=== PATIENT | male | born 1935 | race Caucasian/White ===

== ENCOUNTER 2019-05-07 06:13 | Inpatient (IN) | payer OTHER ==
[~2019-05-07] VITALS: Ht 182.9 cm; Wt 88.5 kg
[2019-05-07 09:50] VITALS: BP 137/66
--- NOTE | 2019-05-07 10:57 | NUR ---
84 YEAR OLD MEI ARRIVES TO UNIT VIA CART FROM [facility] ER. PER ER REPORT HAS BEEN LIVING AT [facility]-LAST PM REPORTED BACK PAIN TO ALF STAFF AND WAS INFORMED HE HAD NO ADDITIONAL PAIN MEDICATIONS TO TAKE-HE ALLEGEDLY STATES "I'M DONE WITH THIS LIFE" AND WRAPPED CALL LIGHT CHORD AROUND NECK. DENIES SI CURRENTLY BUT DOES REPORT HOPELSSNESS,ANHEDONIA AND FEELINGS OF ABADOMENT BY ADULT DAUGHTERS. STATES "MY BODY DOESN'T WORK ANYMORE AND MY MIND STILL DOES A LITTLE BIT" ORIENTED TO NAME AND PLACE-INCORRECTLY ID'S MONTH MAY. GUARDED-AND SARCASTIC DURING INTERVIEW "I'M IN THE REAL NUT HOUSE NOW" RESPONDS "I DON'T KNOW TO MANY QUESTIONS RE MEDICAL HISTORY.VS OBTAINED BP 137/66 P-66 R-16 AND 02 SAT 92-TEMP 98.1, REQUIRES SBA X 2-3 TO TRANSFER D/Y HEMEPERISIS. WEARING BRIEF-NOTED DURING SKIN ASSESSMENT TO HAVE OPEN AREA TO MIDLINE COCYX-DR ROMO AND -ON UNIT AND ASSESSED WOUND-
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
--- NOTE | 2019-05-07 16:29 | NUR ---
Curt Gomez with [facility] contacted and said that it is the plan for pt to return. He asked that updates be faxed Friday to [phone]. team will continue to follow pt during his stay.
[2019-05-07 19:30] VITALS: BP 114/78
--- NOTE | 2019-05-08 01:47 | NUR ---
ASSUMED CARE OF PATIENT AT 1915, ON 05/07/19. PATIENT IS ALERT AND ORIENTED 2-3X. HE IS CALM AND COOPERATIVE WITH THIS NURSE AND AGREEABLE TO ASSESSMENT. HE APPEARS WITH A FLAT AFFECT, BUT DENIES FEELINGS OF DEPRESSION. STATED MOOD IS NOT IN CONGRUENT WITH AFFECT. HE DOES REPORT 'A LOT' OF LOWER BACK PAIN. DR ROMO NOTIFIED AND RECEIVED ORDERS FOR CYCLOBENZAPRINE 10MG Q8H PRN. ALSO ADMINISTERED TYLENOL ORDERED. PATIENT DOES YELL OUT WHEN HE IS IN PAIN. WILL CONTINUE TO MONITOR THIS MAY HAVE AN EFFECT ON PATIENTS MOOD. HE DENIED OTHER MEDICAL CONCERNS. NURSING WILL MAINTAIN ALL PRECAUTIONS TO ENSURE SAFETY AT ALL TIMES.
[2019-05-08 06:22] LABS: ALBUMIN 3.4 g/dL (3.4-5.0); CALCIUM 9.1 mg/dL (8.5-10.1); CREATININE 1.7 mg/dL (0.7-1.3); PHOSPHORUS 3.4 mg/dL (2.5-4.9); POTASSIUM 3.4 mmol/L (3.5-5.1)
[2019-05-08 07:00] VITALS: BP 157/87
--- NOTE | 2019-05-08 14:02 | NUR ---
Lying in bed. Alert and orientated X2. Denies SI/HI. Sarcastic replies to some questions. Breath sounds clear t/o, bilaterally equal. Regular HR auscultated. Color pink with brisk capillary refill and palpable peripheral pulses. +1-2 non pitting edema to lower extremities. Active bowel sounds over soft, rounded abdomen. Soft, small brown stool per brief with small amount of urine. Able to palpate bladder. Able to bear very little weight. Large 7-8 cm area extremely reddened area to center buttocks area with multiple small broken areas with the largest open area approximately 2 cm x1 cm. Circular, scaly rash to lower back. Up to with assistance X 3 after barrier cream applied and skin cleansed. Ate no breakfast but did drink fluids. Compliant with meds. Cushion ordered for WC. 0900 Placed back in bed and on L side. Bottom cleaned and ointment applied. Left brief off. Turned so that he is completely off buttocks. 1200 Turning side to side every 1-2 hours so that he is off back/buttocks. . States he has back pain of 7. Tylenol given and Amilcar Ho applied per request. Pain decreased to 5. Did not eat lunch but did drink 100% of ensure and additional water/tea. 1415 Placed back to bed and repositioned on L side. Now states pain is a three. Scant amount of urine today. Will obtain bladder scan.
[2019-05-08 18:27] LABS: URINE BILIRUBIN NEGATIVE (Negative); URINE BLOOD 3+ (Negative); URINE CLARITY CLOUDY; URINE COLOR BROWN; URINE GLUCOSE-RANDOM* NEGATIVE (Negative); URINE KETONES NEGATIVE (Negative); URINE LEUKOCYTES-REFLEX 3+ (Negative); URINE NITRITE-REFLEX POSITIVE (Negative); URINE PROTEIN (DIPSTICK) TRACE (Negative); URINE SPECIFIC GRAVITY 1.015 (1.005-1.035); URINE UROBILINOGEN 0.2 E.U./dl (0.2-1.0)
[2019-05-08 18:34] LABS: SQUAMOUS 0-3 Few /LPF (0-3)
[2019-05-08 18:35] LABS: BACTERIA-REFLEX >30 Many /HPF (None Seen); CASTS None Seen /LPF (None Seen); CRYSTALS None Seen /LPF (None Seen); URINE RBC >20 Many /HPF (0-2); URINE WBC-REFLEX >25 Many /HPF (0-5)
[2019-05-08 19:38] VITALS: BP 172/69
--- NOTE | 2019-05-08 21:21 | NUR ---
REVIEWED LABS WITH DR. ROMO RECEIVED ORDERS FOR ROCEPHIN 1GM X3 DOSES STARTING TODAY ENDING FRIDAY, WITH LIDOCAINE FOR COMFORT. TELEPHONE ORDER RB.
--- NOTE | 2019-05-08 23:22 | NUR ---
ASSUMED CARE OF PATIENT AT 1915. PATIENT IS ALERT AND ORIENTED X2 UPON ONE TO ONE WITH PATIENT. DURING ASSESSMENT PATIENT IN BED WITH EYES CLOSED BUT OPENED SPONTANEOUSLY TO MY VOICE. DISCUSSED WITH PATIENT GIVING PAIN MEDICATION FOR BACK PAIN PRIOR TO IT BECOMING WORSE, HE AGREED WITH PLAN. HE APPEARS WITH A FLAT SAD AFFECT, ISOLATING TO HIS ROOM THIS EVENING. FOY CATHETER IN PLACE AND PATENT, URINE APPEARS YELLOW. DISCUSSED LAB RESULTS WITH DR. ROMO AND IM ROCEPHIN GIVEN ORDERED ET DISCUSSED WITH PHARMACY LIDOCAINE DOSEAGE FOR COMFORTABLE ADMINISTRATION PER DR. ROMOS INSTRUCTION. HE DOES REPORT HE IS ANXIOUS TO HAVE CATHETHER REMOVED. PT DID REFUSE KEE CARE WHEN OFFERED STATING 'IM ALRIGHT, BUT THANK YOU.' THIS NURSE ENCOURAGED PATIENT TO KEEP AREA CLEAN AND DRY TO PREVENT ANY FURTHER INFXN. HE DID NOT REPORT FEELINGS OF DEPRESSION ET ANXIETY, DENIES SI HI AND HALLUCINATIONS HOWEVER AFFECT AND MOOD APPEAR INCONGRUENT AT THIS TIME. RR EVEN AND UNLABORED AT 19. HE DENIED OTHER MEDICAL CONCERNS WITH NO S/S OF DISTRESS. NURSING WILL MAINTAIN ALL PRECAUTIONS TO ENSURE SAFETY AT ALL TIMES AND MONITOR FOR ANY CHANGES IN MEDICAL CONDITION.
[2019-05-09 06:38] LABS: ALBUMIN 2.9 g/dL (3.4-5.0); CALCIUM 8.9 mg/dL (8.5-10.1); CREATININE 1.3 mg/dL (0.7-1.3); POTASSIUM 3.2 mmol/L (3.5-5.1)
[2019-05-09 09:00] VITALS: BP 127/67
--- NOTE | 2019-05-09 09:53 | H ---
[facility] [place] [address] HISTORY AND PHYSICAL Name: SERINA HERNÁNDEZ MESA Room #: 522B-B ADM IN M.R.#: [id number] Admission: 05/07/19 Attend Phys: Siddharth Gann DO Discharge: Date of : 34 Report #: [id number] THIS REPORT FOR: //name// CC: Siddharth Allan DATE OF SERVICE: 05/07/2019 INPATIENT PSYCHIATRIC EVALUATION SOURCES OF INFORMATION: Documentation from [facility], interview with the patient. Collateral obtained from his daughter, Friday. This is an 84-year-old male who was brought to the [facility] ED around 2:00 a.m. in the morning. CHIEF COMPLAINT: Suicidal ideation. HISTORY OF PRESENT ILLNESS: An 84-year-old male brought to [facility] ED at approximately 2:00 a.m. He had been on the rehab side at [facility] for the last year, had varying degrees of depressive episodes and inappropriate comments. He has been having issues with pain. Denies having increase in his back pain and received Tylenol and Ultram and is making comments about ending his life. He made statements that someone just needed to get him just 38, and he would end it all. He came making statements that he was done being here and was ready to . He continued to make comments about dying and the nursing staff placed him on 1:1. Told the INSPECTOR [employer] that he was watching him that he wanted her to leave, so that he could wrap the ____ cord around his neck. He was then noted to wrap the cord around his neck. He arrived to the ED and stated that they should have just let him finish his job. He was asked by the ED physician on 3 occasions if he really means what he says, and he says that "I am ready to be done now." He is inappropriately smiling and laughing during conversation with the Emergency Room physician. PAST MEDICAL AND SURGICAL HISTORY: Includes back pain; hernia repair in 1969, stroke in 2009; back surgery 2011, compression fracture of L3, compression fracture of T11; osteoporosis; hemiplegia. Currently a wound with cellulitis. MEDICATIONS: His reported medications are calcium carbonate, vitamin D3 one tab p.o. daily, sertraline 50 mg p.o. daily, doxazosin mesylate 4 mg p.o. at bedtime, Sinemet 1000 mg p.o. q. 6 p.r.n. pain, gabapentin 100 mg p.o. 4 times a day p.r.n. pain moderate, tramadol 50 mg p.o. q. 6, alendronate sodium 70-mg tablet weekly, hydrochlorothiazide 25-mg tablet weekly, multivitamin, bupropion 150 mg b.i.d., vitamin D3 with folic acid, B2, B6, B12 p.o. daily. He has used cigarettes in the past. [address] [address] HISTORY AND PHYSICAL Name: SERINA HERNÁNDEZ MESA Room #: 522B-B ADM IN Joellen#: [id number] Admission: 05/07/19 Attend Phys: Siddharth Gann, Discharge: Date of : 34 Report #: [id number] ALLERGIES: No known allergies. REVIEW OF SYSTEMS: From the ER, CONSTITUTIONAL: Denied fever, chills, malaise, night sweats. EYES: Denies eye pain, visual change, blurred vision, drainage. HENT: Denies congestion, headache, dizziness, difficulty walking. RESPIRATORY: Denies cough, shortness of breath. CARDIOVASCULAR: Denies chest pain, palpitations. GASTROINTESTINAL: Denies abdominal pain, nausea, vomiting. GENITOURINARY: Denies urinary symptoms, burning, urgency, frequency, hematuria or discharge. MUSCULOSKELETAL: Back pain, muscle pain. Denies joint pain, joint swelling, leg pain, leg swelling. SKIN: No symptoms noted. NEUROLOGIC: Denies numbness, tingling, focal weakness, altered mental status, headache, loss of consciousness, paresthesias, seizures or syncope. PSYCHIATRIC: Endorsed depression, emotional problems, suicidal ideation. Denies active hallucinations. HEMATOLOGIC AND LYMPHATIC: Denies easy bleeding or bruising. PHYSICAL EXAMINATION: Weight 82.19 kilos in the Emergency Room. Their exam was grossly normal. EKG in the ER showed a rate of 57, normal interval, nonspecific ST changes, T inversion in anterior leads. LABORATORY DATA: From the ER at [facility], sodium 144, potassium 3.1, chloride 104, bicarbonate 32, anion gap 8, BUN 35, creatinine 1.7, estimated GFR 38, glucose 129, calcium 8.8, total bilirubin 0.4, AST 25, ALT 34, alkaline phosphatase 104, total protein 7.2, albumin 3.5, white count 10.4, H and H 12.8 and 38.1, platelet count 195. Urine drug screen was negative. Salicylate less than 2.8, acetaminophen less than 2. Urinalysis had 1+ blood, 0-3 hyaline casts. CURRENT MEDICATIONS: In the hospital, potassium chloride 10 mEq p.o. daily, furosemide 40 mg p.o. daily, diltiazem 120 mg p.o. daily, aspirin 81 mg p.o. daily, senna-S 2 tabs p.o. b.i.d. He was given a single dose of potassium chloride 40 mEq p.o. daily. VITAL SIGNS: Today, temperature 36.7, pulse 66, respirations 14, BP 137/66, O2 sat 98%. MUSCULOSKELETAL: He has deteriorated gait using a wheelchair today. He does have a wound, minor, on his left sacral area, Dr. Haynes,consulted for, wound consult. [facility] [address] [place] [address] HISTORY AND PHYSICAL Name: [facility] Room #: 52-B ADM IN .R.#: [id number] Admission: 05/07/19 Attend Phys: Siddharth Gann DO Discharge: Date of : 34 Report #: [id number] MENTAL STATUS EXAMINATION: This is a well-developed, disheveled male, appearing stated age. Attention limited. Concentration limited. Speech is normal rate. Thought process is linear and goal directed. Thought content, relative poverty. No psychomotor agitation. No psychomotor retardation. Denied SI or HI and hopelessness, helplessness. Memory not formally tested today, but noted to be impaired. Insight limited. Judgment limited. Fund of knowledge below average. DIAGNOSES: At this time, adjustment disorder with disturbance of mood and conduct, likely major neurocognitive disorder. Medical comorbidities include the hypertension, hypokalemia, history of CVA, bilateral basal ganglia, atrial fibrillation, dehydration, sacral wound with excoriation, history of hip fracture, COPD, mild spinal stenosis. PLAN: Evaluate to stabilize, obtain collateral. I would like to observe behavior overnight, so I will not adjust or add psychiatric medications today. Time spent on interview, review of records, coordination of care is at least 45 minutes. Social work got some collateral from daughter. They have not had a chance to review what Friday told us. strengths: insured weaknesses: advanced age, dementia, medial morbidities <ELECTRONICALLY SIGNED> By: Siddharth Gann DO 05/09/19 [id number] Siddharth Gann DO /nt
[2019-05-09 11:36] VITALS: BP 127/67
--- NOTE | 2019-05-09 17:32 | NUR ---
ASSUMED CARE THIS MORNING 0700; PT CALM AND COOPERATIVE. FOY CARE AND PERINEAL CARE DONE. CREAM APPLIED TO HIS BUTTOCKS (BROKEN SKIN). TURNING EVERY TWO HOURS ENCOURANGED. WOUND CARE TO ACCESS HIM TOMORROW FOR FURTHER ORDERS. LASIX REORDERED DUE TO LOW O2 SATS RANGING BETWEEN 86-90 ALL MORNIG. CHEST XRAY DONE. CONTINUE WITH LAXIS ORDERED. O2 SATURATION IMPROVED THIS AFTERNOON. TAKES HIS MEDICATION AND MEALS WELL. BMP HIGH. DR. ROMO AWARE AND DR. VALENTIN TOO. STRICT INTAKE AND INPUT ORDERED. WILL CONTINUE WITH THE PLAN OF CARE.
--- NOTE | 2019-05-09 18:41 | NUR ---
URINE OUTPUT OF [address] ROMO NOTIFIED. REPORT GIVEN TO ORDER ENTRY ADMINISTRATOR RN TO PUSH FLUID/ENCOURAGE MORE FLUID INTAKE AND SEE IF THERE IS ANY IMPROVEMENT. WILL CONTINUE TO MONITOR.
[2019-05-09 20:12] VITALS: BP 127/55
--- NOTE | 2019-05-09 22:38 | NUR ---
WAS GIVEN REPORT BY JONATHAN MCFARLAND THAT PATIENT IS TO HAVE XEROFORM/VASELINE GAUZE APPLIED TO SORE AREA STARTING TO BREAK DOWN ON PATIENT'S SACRAL/AND LEFT INSIDE BUTTOCK. AREA CLEANED WITH NORMAL SALINE AND XERFORM APPLIED TO SITE AND COVERED WITH GAUZE. PATIENT HAD ALSO HAD SMALL BOWEL MOVEMENT SO AREA WAS CLEANED BEFORE STARTING WOUND CARE. PATIENT WAS TURNED ON HIS LEFT SIDE AND REPOSITIONED WITH ONE PILLOW SUPPORTING HIS BACK AND ONE BETWEEN KNEES AND ONE UNDER HEAD. PATIENT'S FOY IS PATENT AND NO SIGNS OF REDNESS OR DISCHARGE AT THE THE INSERTION INTO URETHRA SITE. PATIENT SLEEPING AGAIN AT THIS TIME. BED ALARM ON AND BED IN LOW POSITION. HAVE BEEN PUSHING FLUIDS TONIGHT FOR MORE OUPUT OF URINE. URINE IS BRIGHT YELLOW AND CLEAR. 300CC OUT SO FAR TONIGHT.
--- NOTE | 2019-05-10 06:29 | NUR ---
PATIENT REPOSITIONED THRU THE NIGHT TO KEEP PRESSURE OFF BACK AND BUTTOCKS. FOY URINE OUTPUT 650. PATIENT DRANK 400CC FLUID THRU NIGHT. PATIENT HAS A BANDAID ON RIGHT CHEEK WHERE SCAB WAS PICKED AND SCAB ON RIGHT BACK OF EAR FROM SCRATCHING. HE STATES IT DOES NOT HURT OR ITCH. PATIENT RESTING.
--- NOTE | 2019-05-10 07:00 | NUR ---
Assumed care of patient this am. Patient sitting up in the dining room in a wheel chair. Patient takes medications whole. Patient calm and cooperative. Patients affect soft and happy. Patient ambulates via wheelchair. Patients assessment reveals clear breath sounds, active bowel sounds, and s1 s2 present with auscultation.
[2019-05-10 07:30] VITALS: BP 127/54
[2019-05-10 09:11] VITALS: BP 127/54
--- NOTE | 2019-05-10 10:36 | NUR ---
Nutrition: pt admitted with unspecified depressive disorder. Received wound consult. Pt with breakdown to sacrum and Left buttock. Wound care consulted. Also noted right cheek and back of ear scabs. Pt not very talkative during visit. Reports no weight changes and good appetite. PO documentation confirms. Pt eating 75-100% of meals. Ensure is ordered TID and pt drank 100% last noc. When asked if pt always drinks the ensure, he states "I guess". RD will decrease to BID due to good intake of meals. Protein sources encouraged. Place as low nutrition risk.
[2019-05-10 19:45] VITALS: BP 136/59
[2019-05-10 21:00] VITALS: BP 136/59
--- NOTE | 2019-05-11 02:07 | NUR ---
PATIENT HAD CONSULT BY WOUND NURSE TODAY. HE HAS 2 STAGE 3 ULCERS IN GLUTEAL FOLD OF EACH BUTTOCK. AREA TO BE CLEANED WITH NS AND ANTIFUNGAL CREAM TO BE APPLIED TO THE ULCERS AND LEFT MARSH BUGGY OPERATOR. THIS IS TO BE DONE DAILY AND PRN. PATIENT'S A/O X 1-2 AND IS CONFUSED AND FORGETFUL. HE WAS PLEASANT TONIGHT AND HAS BEEN LAUGHING WITH THIS NURSE WE TALKED. PATIENT IS STILL BEING ENCOURAGED TO DRINK MORE WATER. HE DID ASK FOR MORE WATER TONIGHT. HE HAS A FOY CATHETER THAT IS IN PLACE AND IS PATENT AND DRAINING YELLOW URINE. NO SIGNS OF INFECTION OR DRAINAGE AT INSERTION SITE. PATIENT'S 02 HAS BEEN RUNNING 91-92% ON ROOM AIR. HE STATES HE DOES NOT FEEL SOA BUT HE APPEARS TO BE SOA WITH MOVEMENT. LUNGS DIMINISHED BILATERALY. NO EDEMA IN BLE'S. PEDAL PULSES 2+. CONTINUING TO MONITOR. PATIENT SLEEPING COMFORTABLY AT THIS TIME. NO SIGNS OF DISTRESS. BED ALARM ON AND BED IN LOW POSITION.
[2019-05-11 07:37] LABS: CALCIUM 8.8 mg/dL (8.5-10.1); POTASSIUM 3.4 mmol/L (3.5-5.1)
[2019-05-11 08:48] VITALS: BP 168/72
--- NOTE | 2019-05-11 10:36 | NUR ---
JEN faxed updates for pt to Curt Gomez, Provider Relations Coordinator with [facility] at [phone]. SW team will continue to follow pt during his stay.
[2019-05-11 16:40] VITALS: BP 131/63
--- NOTE | 2019-05-11 17:09 | NUR ---
The psych doctor said pt is okay to discharge today. JEN contacted [facility] and was transferred to [facility]. JEN left a msg asking for a return call to set up discharge for pt. SW team will continue to follow pt during his stay.
--- NOTE | 2019-05-11 17:18 | NUR ---
JEN received a call from [facility] with [place] [place] stating she will need to do an on-site visit before pt can come back due to him actively attempting suicide. She said she will come tomorrow morning to visit pt and speak with nurses. SW team will continue to follow pt during his stay.
[2019-05-11 19:48] VITALS: BP 146/71
--- NOTE | 2019-05-11 19:57 | NUR ---
Alert and orientated to self only. Knows he is in hospital but unsure of which one. Also unsure of day. Alot of pain when repositioning and getting up to chair/recliner but decreases once seated. Denies SI/HI. Uses sarcastic humor when communicating. Rates pain at rest at a 2 that increases to 7-8 when getting up. Much more communicative with staff and peers than 2 days ago. Breath sounds clear t/o, bilaterally equal, diminished in lower lobes. Slight audible expiratory wheeze when in pain that disappears once he settles down and pain decreases. Regular HR auscultated. Color pink with brisk capillary refill and palpabler peripheral pulses. +2 nonpitting edema in lower extremities. Hypertensive. Clear yellow urine per zamora. Active bowel sounds over soft, rounded abdomen. Large, reddened area to buttocks that is drying with several opened areas. Cleaned with NS and fungal ointment applied. 3 person assist when getting up to recliner and sitting on cushion. 1400 Severe pain to L leg, lower back after assisting back to bed. Refused Tylenol stating it was a waste of time. Applied Amilcar Ho. When went back to reassess, stated leg/back pain was much better but that R arm was extremely painful. Amilcar Ho applied to that extremity. Much better stating pain was a 3-4 on reassessment. 1700 Up to recliner with 2 person assist. Appeared much more comfortable after 15min. Experiences alot of pain with transfers and repositioning but then improves within 10-15 min. Eating dinner independently without s/o distress.
[2019-05-11 22:33] VITALS: BP 146/71
--- NOTE | 2019-05-12 00:45 | NUR ---
PATIENT WAS UP IN RECLINER WHEN THIS NURSE CAME ON FLOOR AT 1900. HE HAS BEEN CALM AND COOPERATIVE. RECEIVED IN REPORT THAT PT IS WORKING WITH PATIENT AND THAT HE WAS ABLE TO WALK 5 STEPS WITH A WALKER TODAY. DAY NURSE STATES HE IS DOWN FROM ASSIST X 3 TO ASSIST X T IN TRANSFERRING. PATIENT IS TO BE ENCOURAGED TO USE HIS ARMS MORE TO HELP SUPPORT HIMSELF. PATIENT STILL HAS A FOY CATHETER THAT IS DRAINING YELLOW URINE. APPLIED ANTIFUNGAL CREAM TO PATIENT'S LEFT AND RIGHT GLUTEAL FOLDS AFTER CLEANING AREA WITH SOAP AND WATER. PATIENT DID REQUEST TYLENOL FOR PAIN AT 0030. HIS BACK WAS HURTING WITH 4/10 PAIN RATING. PATIENT HAS BEEN A/OX 3 TONITE. HE HAS BEEN CALM AND COOPERATIVE. DENIES SI/HI. WILL CONTINUE TO MONITOR.
--- NOTE | 2019-05-12 05:28 | NUR ---
PATIENT HAS BEEN SITTING UP IN RECLINER IN DINING ROOM WITH IT RECLINED BACK TONIGHT. HE DID NOT WANT TO STAY IN HIS BED TONITE. HE IS SLEEPING COMFORTABLY IN CHAIR. HE HAS NOT COMPLAINED OF ANY MORE PAIN. HE HAS BEEN A LITTLE EASIER TO TRANSFER TONITE HE IS ASSISTING MORE IN THIS PROCESS.
[2019-05-12 07:50] VITALS: BP 148/71
[2019-05-12 08:07] VITALS: BP 148/71
--- NOTE | 2019-05-12 11:06 | NUR ---
SITTING QUIETLY IN RECLINER IN DAYROOM WITH PEERS-DOES APPEAR TO ENJOY VISITING WITH PEERS AT TABLE. DESCRIBES MOOD "PRETTY GOOD" AND DENIES C/O PAIN/DISCOMFORT WHEN ASKED. DELAYED VERBAL RESPONSES-SLIGHTLY IRRITABLE /SARCASTIC WITH STAFF AT TIMES, REQUIRES ASSIST OF 2-3 STAFF TO TRANSFER TO AND FROM BED/CHAIR-ANTIFUNGL CREAM APPLIED TO SKIN IN COCYX ORDERED BY
--- NOTE | 2019-05-12 13:11 | NUR ---
[facility] pt and determined that his MH has improved. After visiting with the nurses and speaking with the corporate office Tonya told SW that they can accept pt back today at 1530. JEN confirmed with the psych doctor that was okay. Tonya asked that d/c orders be sent to facility before they transport pt so they can ensure he has everything he needs. JEN notified pt's nurse of this update. SW team will continue to follow pt during his stay. [facility] [address] [place] [address]
[2019-05-12] MEDS ORDERED: CEFUROXIME500 MG PO (13:23)
[2019-05-12] MEDS ORDERED: FLOMAX0.4 MG PO (13:24)
[2019-05-12] MEDS ORDERED: CARDIZEM CD120 MG PO (13:24)
[2019-05-12] MEDS ORDERED: ASPIRIN81 M2 PO (13:25)
[2019-05-12] MEDS ORDERED: METHYLPHENIDATE5 M1 PO (13:25)
[2019-05-12] MEDS ORDERED: K-DUR 20 MEQ T20 MEQ PO (13:25)
[2019-05-12] MEDS ORDERED: LASIX 40 MG TAB40 M1 PO (13:26)
[2019-05-12] MEDS ORDERED: SENNA-TIME S T1 EACH PO (13:26)
--- NOTE | 2019-05-12 14:36 | NUR ---
SW D/C note JEN faxed pt's d/c documents to Mellisa with [place] [place] at [phone]. No other needs for SW team to address at this time.
--- NOTE | 2019-05-12 16:31 | NUR ---
REPORT CALLED TO VINAYAK AT [facility]-INFORMED OF NEED FOR FOY CATHETOR FOR ADDITIONAL 5 DAYS AND COMPLETION OF 14 DAYS ABX FOR DX PROSTITITIS. BELONGINGS CONSISITING OF SILVER TONED WATCH AND GREEN T-SHIRT SENT WITH PATIENT. UP AND MOOD/[id number] AND JOKING WITH PEERS AT TIME OF DC-DENIES C/O PAIN AND FOY CATHETOR IS PATENT AND INFUSING CLEAR YELLOW URINE. DENIES SI/SH/HI AT TIME OF DC. DOES REQUIRES ASSIT OF THREE STAFF TO TRANSGER TO AND FROM CHAIR/BED.
--- NOTE | 2019-05-14 21:49 | D ---
[facility] [place] [address] DISCHARGE SUMMARY Name: SERINA HERNÁNDEZ [place] Room #: 523B-B [facility] IN M.R.#: [id number] Admission: 05/07/19 Attend Phys: Siddharth Gann DO Discharge: 05/12/19 Date of : 33 Report #: [id number] THIS REPORT FOR: //name// CC: Siddharth Lombardo [place] DATE OF SERVICE: 05/12/2019 ATTENDING PHYSICIAN: Siddharth Gann DO. AIR TRAFFIC CONTROL SUPERVISOR AT THE TIME OF DISCHARGE: Renato Sherwood MD WOUND TICKET WRITER: Ramiro Haynes MD DISCHARGE DIAGNOSIS: Major neurocognitive disorder, most likely due to Alzheimer's disease with behavioral disturbance. MEDICAL COMORBIDITIES AT THE TIME OF DISCHARGE: Include hypertension; hypokalemia; history of CVA, bilateral basal ganglia; atrial fibrillation; dehydration; MART; sacral wound, decubiti; history of hip fracture; COPD; mild spinal stenosis; UTI; prostatitis, positive for Klebsiella variicola. DISCHARGE PLAN: Discharge to [facility]. The patient will need to have his Brown catheter intact for 5 more days, due to be removed Thursday 05/17 for prostatitis. DISCHARGE MEDICATIONS: Include the following: Cefuroxime axetil 500 mg p.o. b.i.d. for 14 days for the prostatitis, tamsulosin 0.4 mg p.o. at 2100 for urinary retention; diltiazem 120 mg p.o. for 24 hours for hypertension, aspirin 81 mg p.o. daily for cardioprotection methylphenidate 5 mg p.o. daily for depression, potassium chloride 20 mEq tabs p.o. daily for supplementation, Lasix 40 mg p.o. daily for hypertension, senna with docusate 2 tabs p.o. b.i.d. for bowel motility, LABORATORY DATA: Pertinent laboratories this admission include: Sodium 144, potassium 3.4, chloride 104, bicarbonate 33, anion gap 7, BUN 26, creatinine 1.0, glucose 97, all done on 05/11. Additional electrolytes, calcium 8.8, phosphorus 3.0. NT-proBNP 4093, which is high; albumin 2.9. PSA 34.1. IMAGING DATA: On this admission chest x-ray read as no acute cardiopulmonary process, mild right hemidiaphragmatic elevation. REASON FOR ADMISSION: Back on 05/07 as follows: Sent from [facility] to [facility]. He was medically cleared in the ER for incident where he wrapped evidently a light cord around his neck, made statements that he was ready to . [address] [address] [facility]: 523[facility]-B [facility] IN M.R.#: [id number] Admission: 05/07/19 Attend Phys: Siddharth Gann DO Discharge: 05/12/19 Date of : 33 Report #: [id number] HOSPITAL COURSE: The patient was admitted to Geriatric Psychiatry Unit. Apparently, the patient has been suffering for quite some time. The light cord incident wrappen around his neck he admitted was an attention getter. According to daughter Friday, the patietn and her have considered Physician Assisted Suicide but know it is not legal in [place] or nearby states. The patient remains high risk for suicidal ideation but given how physically disbaled he is this would be difficult to carry out on his own. My position is hospice services should be considered as soon as he is likely to meet criteria. VITAL SIGNS: Temperature 37.3, pulse 64, respirations 14, BP 114/61, O2 sat 99%. He was just started on methylphenidate. The patient definitely needs a memory care kind of programming. He is nonambulatory, so he will be in a long-term. MENTAL STATUS EXAMINATION: This is a well-developed, disheveled-appearing male, appearing stated age. Brown catheter intact. In wheelchair. Attention limited. Concentration limited. Speech is normal rate. Thought process is linear and goal directed. Thought content focused on the present. No psychomotor agitation. No psychomotor retardation. Denied SI or HI. Denied hopelessness or helplessness. Denied homicidal intent or plan. Mood and affect congruent, fairly euthymic today. Memory not formally tested. Insight limited. Judgment limited. Fund of knowledge below average. PROGNOSIS: For this patient is guarded given him having a major neurocognitive disorder as well as his medical comorbidities. <ELECTRONICALLY SIGNED> By: Siddharth Gann DO 05/14/19 [id number] Siddharth Gann DO /nt
--- NOTE | 2019-05-17 18:37 | HC ---
[facility] [place] [address] [facility]B [facility] IN M.R.#: [id number] Admission: 05/07/19 Attend Phys: Siddharth Gann, Discharge: 05/12/19 Date of : 33 Report #: [id number] THIS REPORT FOR: //name// CC: Siddharth Allan DATE OF SERVICE: 05/10/2019 HISTORY OF PRESENT ILLNESS: An 84-year-old male patient who I have been asked to see with regard to a gluteal pressure ulcerations. He is in the Geriatric Psych Unit. He has significant dementia, neurocognitive disorder and depression. He is not able to provide any information about himself. PAST MEDICAL HISTORY: Positive for history of dementia, cerebrovascular accident, bilateral basal ganglia, hypertension, atrial fibrillation, suicidal ideation, previous hip fracture, COPD, spinal stenosis. MEDICATIONS: Include aspirin, cefuroxime, diltiazem, Lasix, methylphenidate, potassium chloride, senna, tamsulosin. ALLERGIES: None. FAMILY HISTORY: Unknown. REVIEW OF SYSTEMS: Unobtainable due to the patient's dementia. PHYSICAL EXAMINATION: VITAL SIGNS: At this time include temperature 36.7, pulse 78, respiratory rate 16 and blood pressure 127/54. GENERAL: This is a chronically ill-appearing male patient who appears to be in minimal distress. HEENT: Head normocephalic. Nose and throat clear. NECK: Supple. LUNGS: Clear. HEART: Regular. ABDOMEN: Soft. Bowel sounds present. EXTREMITIES: Examination of the gluteal region demonstrates moderate erythema consistent with yeast dermatitis and small stage 3 pressure ulceration to the buttocks bilaterally. These are superficial, clean, granulating without evidence of infection. CLINICAL IMPRESSION: 1. Stage 3 pressure ulceration to the buttocks bilaterally. 2. Yeast type dermatitis. 3. History of depression. 4. Advanced dementia. [facility] [address] [place] [address] [facility] #: 523[facility]B [facility] IN M.R.#: [id number] Admission: 05/07/19 Attend Phys: Siddharth Gann DO Discharge: 05/12/19 Date of : 33 Report #: [id number] RECOMMENDATIONS: At this point in time, we will recommend antifungal barrier cream b.i.d. low air loss mattress, q.2 hour turning and positioning, nutritional support and continuation of current medications. I appreciate being asked him in consultation. <ELECTRONICALLY SIGNED> By: Ramiro Haynes MD 05/17/19 [id number] Ramiro Haynes MD /nt
== END 2019-05-12 16:00 | DRG 56 ==
LOC: SBH
PROVIDERS: Hospitalist; ADMIT Psychiatry & Neurology Psychiatry
DX: G30.9 Alzheimer's disease, unspecified (principal); L89.323 Pressure ulcer of left buttock, stage 3; L89.313 Pressure ulcer of right buttock, stage 3; F01.51 Vascular dementia, unspecified severity, with behavioral disturbance; N17.9 Acute kidney failure, unspecified; N39.0 Urinary tract infection, site not specified; F02.81 Dementia in other diseases classified elsewhere, unspecified severity, with behavioral disturbance; R45.851 Suicidal ideations; I69.359 Hemiplegia and hemiparesis following cerebral infarction affecting unspecified side; M81.0 Age-related osteoporosis without current pathological fracture; F43.24 Adjustment disorder with disturbance of conduct; R33.9 Retention of urine, unspecified; N41.9 Inflammatory disease of prostate, unspecified; F32.9 Major depressive disorder, single episode, unspecified; I10 Essential (primary) hypertension; I48.91 Unspecified atrial fibrillation; J44.9 Chronic obstructive pulmonary disease, unspecified; M48.00 Spinal stenosis, site unspecified; B37.2 Candidiasis of skin and nail; E87.6 Hypokalemia; E86.0 Dehydration; B96.1 Klebsiella pneumoniae [K. pneumoniae] as the cause of diseases classified elsewhere; Z79.01 Long term (current) use of anticoagulants; Z79.2 Long term (current) use of antibiotics; Z79.82 Long term (current) use of aspirin; Z79.899 Other long term (current) drug therapy
CPT/HCPCS: 10880